=== PATIENT | female | born 1950 | race Caucasian/White ===

== ENCOUNTER → 2019-06-01 | Outpatient (CLI) | payer OTHER ==
[~2019-06-01] MED LIST: ASPI-496 PO; ATOR20TA37 PO; CHOL100012 PO; DESL5TAB40 PO; DICL100G19 TP; FLAX10004 PO; GABA-826 PO; GLUC-111 PO; HYDR-3240 PO; KRIL1CAP7 PO; LANS30CA PO; LISI5TAB7 PO; MULT1TAB60 PO
[2019-06-01 13:04] LABS: BASOPHILS # (AUTO) 0.05 x10^3/uL (0-0.1); BASOPHILS % (AUTO) 1 % (0-1); EOSINOPHILS # (AUTO) 0.15 x10^3/uL (0-0.4); EOSINOPHILS % (AUTO) 2 % (1-7); LYMPHOCYTES # (AUTO) 1.88 x10^3/uL (1-3.4); LYMPHOCYTES % (AUTO) 23 % (22-44); MD NO; MEAN CORPUSCULAR HEMOGLOBIN 30.6 pg (27.0-34.8); MEAN CORPUSCULAR HGB CONC 32.8 g/dL (32.4-35.8); MEAN CORPUSCULAR VOLUME 93.3 fL (80-100); MEAN PLATELET VOLUME 8.7 fL (7.4-10.4); MONOCYTES # (AUTO) 0.83 x10^3/uL (0.2-0.8); MONOCYTES % (AUTO) 10 % (2-9); NEUTROPHILS # (AUTO) 5.11 x10^3/uL (1.8-6.8); NEUTROPHILS % (AUTO) 64 % (42-75); PLATELET COUNT 303 x10^3/uL (130-400); RED BLOOD COUNT 4.78 x10^6/uL (3.82-5.3)
[2019-06-01 13:08] LABS: ALANINE AMINOTRANSFERASE 19 U/L (12-78); ALBUMIN 3.7 g/dL (3.4-5.0); ANION GAP 6 mmol/L (5-15); CALCIUM 9.1 mg/dL (8.5-10.1); CHLORIDE 108 mmol/L (98-107)
[2019-06-01 13:10] LABS: ALKALINE PHOSPHATASE 113 U/L (45-117); BILIRUBIN,TOTAL 0.4 mg/dL (0.2-1.0); CHOL/HDL RATIO 3.2; CHOLESTEROL, TOTAL 188 mg/dL (140-239); CREATININE 0.73 mg/dL (0.55-1.02); HDL CHOL % 31 % (28-40); HDL CHOLESTEROL (DIRECT) 58 mg/dL (40-60); LDL CHOLESTEROL,CALCULATED 110 mg/dL (54-169); LDL/HDL RATIO 1.9 (0.5-3.0); TOTAL PROTEIN 7.5 g/dL (6.4-8.2); TRIGLYCERIDES 100 mg/dL (50-200); VLDL CHOLESTEROL 20 mg/dL (0-25)
[2019-06-01 13:18] LABS: HCT (SEDRATE) 44.6 % (34.6-47.8); HEMOGLOBIN A1C 5.6 % (4.2-6.3)
== END | disposition home or self-care (01) ==
LOC: LAB 12:39
PROVIDERS: ATTEND Family Medicine
DX: I10 Essential (primary) hypertension (principal); E78.2 Mixed hyperlipidemia; D72.821 Monocytosis (symptomatic); E55.9 Vitamin D deficiency, unspecified; Z82.49 Family history of ischemic heart disease and other diseases of the circulatory system; D64.9 Anemia, unspecified; R73.9 Hyperglycemia, unspecified
CPT/HCPCS: 36415; 80053; 80061; 82306; 83036; 85025; 85651

== ENCOUNTER → 2019-06-01 | Outpatient (CLI) | payer OTHER ==
[2019-06-01 12:41] LABS: MICROSCOPIC NOT IND
[2019-06-01 12:43] LABS: CULTURE INDICATED? NO
[2019-06-01 13:07] LABS: INTERNATIONAL NORMALIZED RATIO 0.95 (0.93-1.1)
== END | disposition home or self-care (01) ==
LOC: STAR 11:22
PROVIDERS: ATTEND Orthopaedic Surgery Adult Reconstructive Orthopaedic Surgery
DX: Z01.818 Encounter for other preprocedural examination (principal); M17.11 Unilateral primary osteoarthritis, right knee; M17.12 Unilateral primary osteoarthritis, left knee; I10 Essential (primary) hypertension; M65.311 Trigger thumb, right thumb; Z82.49 Family history of ischemic heart disease and other diseases of the circulatory system; Z96.643 Presence of artificial hip joint, bilateral
CPT/HCPCS: 36415; 81003; 85610; 85730; 87081; 87147; 93005

== ENCOUNTER 2019-06-05 10:14 | Observation (INO) | payer OTHER ==
[~2019-06-05] VITALS: Ht 154.9 cm; Wt 96.9 kg
[2019-06-05 11:36] VITALS: BP 143/84
[2019-06-05] MEDS ORDERED: LACTATED RINGERS 1,000 ML IV SCH ×2 (11:39→15:22)
[2019-06-05] MEDS ORDERED: FENTANYL PF 100 MCG/2ML ONE ×2 (12:20→15:25)
[2019-06-05] MEDS ORDERED: MIDAZOLAM 1 MG/ML, 2ML ONE (12:20)
[2019-06-05] MEDS ORDERED: KETOROLAC 60 MG/2 ML ONE (12:43)
[2019-06-05] MEDS ORDERED: TRANEXAMIC ACID 100 MG/ML, 10ML ONE ×2 (12:43)
[2019-06-05] MEDS ORDERED: VANCOMYCIN 1,000 MG ONE (12:43)
[2019-06-05] MEDS ORDERED: ROPIvacaine/PF 0.2%, 20 ML ONE (12:43)
[2019-06-05] MEDS ORDERED: EPINEPHRINE 1 MG/ML, 1ML ONE (12:44)
[2019-06-05] MEDS ORDERED: BACITRACIN 50,000 UNIT ONE (12:44)
[2019-06-05] MEDS ORDERED: SODIUM CHLORIDE 0.9% 0 ML ONE (12:44)
[2019-06-05] MEDS ORDERED: LACTATED RINGERS 1,000 ML ONE (13:03)
[2019-06-05] MEDS ORDERED: PROPOFOL 10 MG/ML, 20ML ONE (13:03)
[2019-06-05] MEDS ORDERED: KETOROLAC 30 MG/1 ML ONE (13:03)
[2019-06-05] MEDS ORDERED: CEFAZOLIN 1,000 MG ONE (13:03)
[2019-06-05] MEDS ORDERED: DEXAMETHASONE 4 MG/ML, 1ML ONE (13:03)
[2019-06-05] MEDS ORDERED: ONDANSETRON 2MG/ML, 2ML ONE (13:03)
[2019-06-05] MEDS ORDERED: ACETAMINOPHEN 325 MG TABLET PO PRN (14:00)
[2019-06-05] MEDS ORDERED: hydrALAzine 20 MG/ML, 1ML IV PRN (14:00)
[2019-06-05] MEDS ORDERED: LABETALOL 5MG/ML, 20ML IV PRN (14:00)
[2019-06-05] MEDS ORDERED: ONDANSETRON 2MG/ML, 2ML IV PRN (14:00)
[2019-06-05] MEDS ORDERED: OXYcodone 5 MG/5 ML ORAL.SOL UDC PO PRN (14:00)
[2019-06-05] MEDS ORDERED: HYDROmorphone 1 MG/ML, 1ML VIAL ONE ×2 (15:25→16:32)
[2019-06-05] MEDS ORDERED: OXYcodone 5 MG/5 ML ORAL.SOL UDC ONE (15:26)
[2019-06-05] MEDS ORDERED: ACETAMINOPHEN 650 MG/20.3 ML UDC ONE (15:27)
[2019-06-05] MEDS ORDERED: ACETAMINOPHEN 325 MG TABLET ONE (15:28)
[2019-06-05] MEDS: FENTANYL PF 100 MCG/2ML IV PRN ×2 (15:29→16:00)
[2019-06-05] MEDS ORDERED: DEXAMETHASONE 4 MG/ML, 1ML IVPush SCH (15:30)
[2019-06-05] MEDS: ACETAMINOPHEN 500 MG TABLET PO SCH ×2 (15:30→21:47)
[2019-06-05] MEDS ORDERED: ONDANSETRON 2MG/ML, 2ML IVPush PRN (15:30)
[2019-06-05] MEDS ORDERED: ONDANSETRON 4 MG TABLET PO PRN (15:30)
[2019-06-05] MEDS ORDERED: DIAZEPAM 5 MG TABLET PO PRN (15:30)
[2019-06-05] MEDS ORDERED: DIPHENHYDRAMINE 25 MG CAPSULE PO PRN (15:30)
[2019-06-05] MEDS ORDERED: OXYcodone IR 5MG TABLET PO PRN (15:30)
[2019-06-05] MEDS ORDERED: VANCOMYCIN PER PHARMACY MC PRN (15:30)
[2019-06-05] MEDS ORDERED: ZOLPIDEM 5MG TABLET PO PRN (15:30)
[2019-06-05] MEDS ORDERED: SENNA/DOCUSATE TABLET PO PRN (15:30)
[2019-06-05] MEDS ORDERED: HYDROmorphone 1 MG/ML, 1ML INJ IVPush PRN (15:30)
[2019-06-05] MEDS: HYDROmorphone 2 MG/ML, 1ML IVPush PRN ×3 (15:55→16:34)
[2019-06-05 17:19] VITALS: BP 116/65
[2019-06-05] MEDS: GABAPENTIN 300 MG CAPSULE PO SCH ×2 (18:26→18:29)
[2019-06-05] MEDS ORDERED: VANCOMYCIN 2,000 MG in SODIUM CHLORIDE 0.9% 500 ML IV SCH (18:30)
[2019-06-05 18:59] VITALS: BP_SYST 129; BP_SYST 154; BP_DIAS 63; BP_DIAS 78
[2019-06-05] MEDS: OXYcodone IR 5MG TABLET PO PRN (19:51)
[2019-06-05] MEDS ORDERED: ATORVASTATIN 20 MG TABLET PO SCH (21:00)
[2019-06-05] MEDS ORDERED: LISINOPRIL 5 MG TABLET PO SCH (21:00)
[2019-06-05 23:22] VITALS: BP 108/65
[2019-06-06] MEDS: OXYcodone IR 5MG TABLET PO PRN ×4 (00:38→14:49)
[2019-06-06 03:27] VITALS: BP 120/69
[2019-06-06] MEDS: ACETAMINOPHEN 500 MG TABLET PO SCH ×2 (03:28→09:12)
[2019-06-06] MEDS ORDERED: ASPIRIN 81 MG TABLET EC PO SCH (04:00)
[2019-06-06 06:52] VITALS: BP 107/46
[2019-06-06] MEDS ORDERED: MULTIVITAMIN 1 TABLET PO SCH (09:00)
[2019-06-06] MEDS ORDERED: CHOLECALCIFEROL 1,000 UNIT TABLET PO SCH (09:00)
[2019-06-06] MEDS: GABAPENTIN 300 MG CAPSULE PO SCH (09:12)
[2019-06-06 14:13] VITALS: BP 109/58
== END 2019-06-06 15:30 | disposition home or self-care (01) ==
LOC: OUT 10:14 → 4NE 15:22 → OUT 15:22 → 4NE 17:05 → DCLOUNGE 06-06 15:20
PROVIDERS: ADMIT Orthopaedic Surgery Adult Reconstructive Orthopaedic Surgery; ATTEND Orthopaedic Surgery Adult Reconstructive Orthopaedic Surgery
DX: M17.11 Unilateral primary osteoarthritis, right knee (principal); M21.00 Valgus deformity, not elsewhere classified, unspecified site; M85.80 Other specified disorders of bone density and structure, unspecified site
CPT/HCPCS: 27447; 36415; 73560; 85018; 96365; 96366; 97110; 97161; C1713; C1762; C1776; G0378; J0690; J1100; J1170; J1885; J2250; J2405; J2704; J3010; J3370; J7040; J7120; J0171; J2795